=== PATIENT | female | born 1985 | race Caucasian/White ===

== ENCOUNTER 2017-06-12 09:03 | Emergency (ER) | payer BC ==
[2017-06-12 09:11] VITALS: BMI 22.3
--- NOTE | 2017-06-12 09:38 | PDOC ---
*Physical Exam - Vital Signs Last Vital Signs Temp Pulse Resp BP Pulse Ox 99.0 F 67 20 115/68 100 06/12/17 09:09 06/12/17 09:09 06/12/17 09:09 06/12/17 09:09 06/12/17 09:09 ED Treatment Course - LABORATORY CBC & Chemistry Diagram: 06/12/17 09:58 06/12/17 09:58 Medical Decision Making - Medical Decision Making 06/12/17 13:11 I agree with NEFTALI Andrea's history, assessment and plan. In summary, pt is a 31yo F who is 7 weeks who presents with vaginal bleeding. Pt is Rh-. TVUS here with single viable intrauterine with FHR 160s. Pt given Rhogam and will f/u with OB. *DC/Admit/Observation/Transfer Diagnosis at time of Disposition: Vaginal discharge during Qualifiers: Trimester: first trimester Qualified Code(s): O26.891 - Other specified related conditions, first trimester - Discharge Dispostion Disposition: HOME Condition at time of disposition: Good - Referrals Referrals: Felton Garcia MD [Primary Care Provider] - - Patient Instructions Printed Discharge Instructions: DI for Vaginal Bleeding During Additional Instructions: Please follow-up with your PRECIPITATION EQUIPMENT TENDER/OB.. May take Tylenol for discomfort. If you develop severe abdominal pain or heavy vaginal bleeding may return to the ED at any given time.
--- NOTE | 2017-06-12 09:50 | PDOC ---
History of Present Illness - General Chief Complaint: Vaginal Bleeding Stated Complaint: SPOTTING (7 WKS ) Time Seen by Provider: 06/12/17 09:20 History Source: Patient Exam Limitations: No Limitations - History of Present Illness Travel History: No Initial Comments: 06/12/17 09:30 31-year-old female currently 7 weeks presents with sudden onset of spotting last night after urinating. 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 Patient states has not had an ultrasound yet for this and denies any fever, chills, diarrhea, dysuria, radiation of pain, dyspareunia, or recent injury. Timing/Duration: reports: intermittent Quality: reports: mild, cramping Abdominal Pain Onset Location: reports: suprapubic Pain Radiation: reports: no radiation Activities at Onset: reports: none Aggravating Factors: improves with: None Alleviating Factors: improves with: None Past History - Past Medical History Allergies/Adverse Reactions: Allergies Allergy/AdvReac Type Severity Reaction Status Date / Time tetracycline Allergy Verified 06/12/17 09:11 Home Medications: Ambulatory Orders Pnv No.122/Iron/Folic Acid [ Multi Tablet] 1 each PO DAILY 06/12/17 Other medical history: NONE - Reproductive History Is Patient Now?: Yes (7 weeks) (#): 3 Para: 1 Therapeutic (s) & number: Yes (1-) Spontaneous : 0 - Immunization History Td Vaccination: Yes TDAP Vaccination: Yes Immunization Up to Date: Yes - Psycho/Social/Smoking Cessation Hx Anxiety: No Suicidal Ideation: No Smoking History: Never smoked Have you smoked in the past 12 months: No Hx Alcohol Use: No Drug/Substance Use Hx: No Substance Use Type: None Patient Lives Alone: No Lives with/in: spouse/SO Review of Systems - Review of Systems Able to Perform ROS?: Yes Constitutional: No: Symptoms Reported HEENTM: No: Symptoms Reported Respiratory: No: Symptoms reported Cardiac (ROS): No: Symptoms Reported ABD/GI: Yes: Abdominal cramping : Yes: Discharge Musculoskeletal: No: Symptoms Reported Integumentary: No: Symptoms Reported Neurological: No: Symptoms reported *Physical Exam - Vital Signs Last Vital Signs Temp Pulse Resp BP Pulse Ox 99.0 F 67 20 115/68 100 08/26/17 09:09 06/12/17 09:09 06/12/17 09:09 06/12/17 09:09 06/12/17 09:09 - Physical Exam General Appearance: Yes: Nourished, Appropriately Dressed. No: Apparent Distress HEENT: negative: Pale Conjunctivae Respiratory/Chest: positive: Lungs Clear, Normal Breath Sounds. negative: Accessory Muscle Use Cardiovascular: positive: Regular Rhythm, Regular Rate. negative: Murmur Female Pelvic Exam: positive: cervical os closed, vaginal bleeding (moderate amount of pinkish hankins discharge). negative: CMT, adnexal tenderness Gastrointestinal/Abdominal: positive: Normal Bowel Sounds, Soft. negative: Distended, Tenderness Musculoskeletal: negative: CVA Tenderness Integumentary: positive: Normal Color, Warm, Moist Neurologic: positive: Motor Strength 5/5 (ambulatory) ED Treatment Course - LABORATORY CBC & Chemistry Diagram: 06/12/17 09:58 06/12/17 09:58 - RADIOLOGY Radiology Studies Ordered: Category Date Time Status <14WKS US [US] Stat Ultrasound 06/12/17 09:31 Ordered Medical Decision Making - Medical Decision Making 06/12/17 10:09 Patient complains of vaginal bleeding that began yesterday describing it is pinkish red. Patient on exam had pinkish discharge with no adnexal lower abdominal tenderness. Patient states is Rh-. Patient ordered for labs including type and screen, beta hCG urine and ultrasound. 06/12/17 12:46 Ultrasound shows a single viable intrauterine gestation measuring 5 weeks 6 days with a heart rate of 1 63 bpm. Patient to be discharged home, urine culture was sent. 06/12/17 12:47 Laboratory Tests 06/12/17 06/12/17 06/12/17 09:58 09:58 09:58 WBC 6.1 Hgb 13.1 Hct 39.1 Plt Count 228 Neutrophils % 62.0 Sodium 138 Potassium 4.1 Chloride 103 Carbon Dioxide 29 Anion Gap 6 L BUN 11 Creatinine 0.7 Random Glucose 92 Calcium 9.0 Total Bilirubin 0.7 AST 13 L ALT 24 Alkaline Phosphatase 95 Beta HCG, Quant 99489.9 Urine Ketones Negative Urine Blood 2+ H Urine Nitrite Negative Urine RBC 5 Urine WBC 2 *DC/Admit/Observation/Transfer Diagnosis at time of Disposition: Vaginal discharge during Qualifiers: Trimester: first trimester Qualified Code(s): O26.891 - Other specified related conditions, first trimester - Discharge Dispostion Disposition: HOME Condition at time of disposition: Good - Referrals Referrals: Felton Garcia MD [Primary Care Provider] - - Patient Instructions Printed Discharge Instructions: DI for Vaginal Bleeding During Additional Instructions: Please follow-up with your SUPERINTENDENT STEVEDORING/OB.. May take Tylenol for discomfort. If you develop severe abdominal pain or heavy vaginal bleeding may return to the ED at any given time.
[2017-06-12 10:08] LABS: BASOPHIL 0.9 % (0-2.0); EOSINOPHIL 1.4 % (0-4.5); MCH 29.5 pg (25.7-33.7); MCHC 33.5 g/dl (32.0-36.0); MEAN CELL VOLUME 88.1 fl (80-96); MEAN PLT VOLUME 7.9 fl (7.5-11.1); PLATELET COUNT 228 K/MM3 (134-434); RDW 12.9 % (11.6-15.6); WHITE BLOOD COUNT 6.1 K/mm3 (4.0-10.0)
[2017-06-12 10:14] LABS: URINE APPEARANCE CLOUDY; URINE BILIRUBIN NEGATIVE (NEGATIVE); URINE BLOOD 2+ (NEGATIVE); URINE COLOR YELLOW; URINE GLUCOSE (UA) NEGATIVE (NEGATIVE); URINE KETONE NEGATIVE (NEGATIVE); URINE NITRITE NEGATIVE (NEGATIVE); URINE PROTEIN NEGATIVE (NEGATIVE); URINE UROBILINOGEN NEGATIVE mg/dL (0.2-1.0)
[2017-06-12 10:17] LABS: URINE LEUK ESTERASE 2+ (NEGATIVE)
[2017-06-12 10:24] LABS: URINE MUCUS RARE; URINE RBC 5 /hpf (0-3); URINE WBC 2 /hpf (3-5)
[2017-06-12 10:37] LABS: ALBUMIN 4.2 g/dl (3.4-5.0); ANION GAP 6 (8-16); BILIRUBIN,TOTAL 0.7 mg/dL (0.2-1.0); CO2 29 mmol/L (21-32); CREATININE 0.7 mg/dL (0.55-1.02); GLUCOSE,RANDOM 92 mg/dL (74-106); SGOT/AST 13 U/L (15-37); SGPT/ALT 24 U/L (12-78); TOT PROT 7.6 g/dl (6.4-8.2)
[2017-06-12 10:53] LABS: ALK PHOS 95 U/L (45-117)
[2017-06-12] MEDS ORDERED: RHO(D) IMMUNE GLOBULIN 1,500 UNIT DISP.SYRIN IM ONE (11:44)
[2017-06-12 12:50] VITALS: BP 108/63; PULSE 78; TEMP 98.3
== END 2017-06-12 13:44 | disposition home or self-care (01) ==
LOC: JER 09:03
PROC: 3E0234Z Introduction of Serum, Toxoid and Vaccine into Muscle, Percutaneous Approach (ICD-10-PCS; principal; 2017-06-12)
DX: O26.891 Other specified pregnancy related conditions, first trimester (principal); N89.8 Other specified noninflammatory disorders of vagina; Z3A.01 Less than 8 weeks gestation of pregnancy; O36.0910 Maternal care for other rhesus isoimmunization, first trimester, not applicable or unspecified; Z29.13 Encounter for prophylactic Rho(D) immune globulin
CPT/HCPCS: 36415; 76801-TC; 80053; 81003; 81015; 84702; 85025; 86850; 86900; 86901; 86999; 87086; 99283-25; J1561